=== PATIENT | male | born 2000 | race Caucasian/White ===

== ENCOUNTER 2022-09-25 17:24 | Inpatient (IN) | payer OTHER ==
[~2022-09-25] VITALS: Ht 185.4 cm; Wt 95.3 kg
[2022-09-25 17:32] VITALS: O2SAT 100
[2022-09-25 18:47] LABS: HEMATOCRIT. 49.5 % (42.0-52.0); MEAN CORPUSCULAR HEMOGLOBIN 30.1 pg (28.0-32.0); MEAN CORPUSCULAR VOLUME 87.6 fL (80.0-94.0); MEAN PLATELET VOLUME 8.2 fl (7.4-10.4); PLATELET 214 x1000/uL (130-400); RED BLOOD CELL COUNT 5.64 mill/uL (4.7-6.1); RED CELL DISTRIBUTION WIDTH 12.6 % (11.6-14.6)
[2022-09-25 18:55] LABS: CHLORIDE 100 mEq/L (98-107)
[2022-09-25] MEDS ORDERED: KETOROLAC 15MG/ML VIAL IV ONE (19:30)
[2022-09-25] MEDS ORDERED: SODIUM CHLORIDE 0.9% 1000ML BAG (SEPSIS BOLUS) IV ONE (19:30)
[2022-09-25 19:53] LABS: PLATELET ESTIMATE NORMAL
[2022-09-25] MEDS ORDERED: IOHEXOL-300 100 ML BOTTLE ONE (19:59)
[2022-09-25] MEDS ORDERED: MORPHINE SULFATE 4 MG/ML CPJ (NOT FOR IM USE) IV NR (20:15)
[2022-09-25] MEDS ORDERED: PIPERACILLIN/TAZOBACTAM 3.375GM/50ML PREMIX IV ONE (20:15)
[2022-09-25] MEDS ORDERED: ONDANSETRON HCL 4MG/2ML INJ IV NR (20:15)
[2022-09-25 20:16] LABS: INR 1.2; PROTHROMBIN TIME 12.7 sec (9.6-11.0)
[2022-09-25 20:22] LABS: CREATINE KINASE 239 IU/L (39-308); ETHANOL BLOOD < 10 mg/dL (-10)
[2022-09-25] MEDS ORDERED: KETOROLAC 15MG/ML VIAL IV NR (20:30)
[2022-09-25] MEDS ORDERED: PIPERACILLIN/TAZ 3.375G PREMIX 50 ML IV NR (20:30)
[2022-09-25] MEDS ORDERED: FENTANYL CITRATE/PF 50MCG/ML 2ML VIAL ONE (21:42)
[2022-09-25] MEDS ORDERED: LIDOCAINE HCL 1% 10 MG/ML 10ML VIAL ONE (21:42)
[2022-09-25] MEDS ORDERED: MIDAZOLAM HCL 2 MG/2 ML VIAL ONE (21:42)
[2022-09-25] MEDS ORDERED: PROPOFOL 200MG/20ML VIAL IV ONE (21:42)
[2022-09-25] MEDS ORDERED: ROCURONIUM BROMIDE 10MG/ML VIAL 5ML IV ONE (21:43)
[2022-09-25] MEDS ORDERED: BUPIVACAINE HCL/PF 0.5% (5MG/ML) 10ML ONE (22:19)
[2022-09-25] MEDS ORDERED: SKIN ADHESIVE 0.7 GM EA TOP ONE (22:19)
[2022-09-25] MEDS ORDERED: HYDROMORPHONE HCL/PF 2MG/ML CPJ IV PRN (22:30)
[2022-09-25] MEDS ORDERED: ONDANSETRON HCL 4MG/2ML INJ IV PRN (22:30)
[2022-09-25] MEDS ORDERED: NALOXONE HCL 0.4MG/ML VIAL IV PRN ×2 (22:30→23:45)
[2022-09-25] MEDS ORDERED: SUCCINYLCHOLINE CHLORIDE 200MG/10ML IV ONE (22:35)
[2022-09-25] MEDS ORDERED: KETOROLAC 30MG/ML VIAL ONE (22:35)
[2022-09-25] MEDS ORDERED: ONDANSETRON HCL 4MG/2ML INJ ONE (22:35)
[2022-09-25] MEDS ORDERED: GLYCOPYRROLATE 0.2 MG/ML 2ML VIAL ONE ×2 (22:40)
[2022-09-25] MEDS ORDERED: NEOSTIGMINE METHYLSULFATE 1MG/ML 10 ML VIAL ONE (22:40)
[2022-09-25] MEDS ORDERED: DEXAMETHASONE 4MG/ML 1ML VIAL ONE (22:54)
[2022-09-25] MEDS ORDERED: PHENYLEPHRINE HCL 10 MG/ML 1ML (IV VIAL) IV ONE (22:54)
[2022-09-26] MEDS ORDERED: MORPHINE SULFATE 4 MG/ML CPJ (NOT FOR IM USE) IV PRN
[2022-09-26] MEDS ORDERED: ONDANSETRON HCL 4MG/2ML INJ IV PRN
[2022-09-26 01:27] VITALS: BP 117/55; PULSE 86; RESP 18; TEMP 98.3
[2022-09-26 02:10] VITALS: BP 117/55; PULSE 86; RESP 18; TEMP 98.3
[2022-09-26] MEDS: DEXT 5%/0.45% NACL KCL 20MEQ/L 1,000 ML IV SCH ×2 (03:12→11:00)
[2022-09-26 04:00] VITALS: BP 104/55; PULSE 70; RESP 18; TEMP 96.4
[2022-09-26 08:00] VITALS: BP 98/78; PULSE 77; RESP 17; TEMP 98.6
[2022-09-26 12:00] VITALS: BP 102/66; PULSE 79; RESP 17; TEMP 97.3
== END 2022-09-26 18:45 | disposition home or self-care (01) | DRG 342 ==
LOC: ER 17:24 → MICUSO 21:09 → EDBEDREQ 21:15 → EDBEDREQTM 21:15 → EDBEDREQSVC 21:15 → 6EST 09-26 00:46
PROVIDERS: ADMIT Internal Medicine; ATTEND Internal Medicine
PROC: 0DTJ4ZZ Resection of Appendix, Percutaneous Endoscopic Approach (ICD-10-PCS; principal; 2022-09-25)
DX: K35.80 Unspecified acute appendicitis (principal); E87.1 Hypo-osmolality and hyponatremia; E87.20 Acidosis, unspecified; K38.1 Appendicular concretions; R73.9 Hyperglycemia, unspecified
CPT/HCPCS: 36415; 71045; 74177; 80053; 80320; 82550; 82962; 83605; 84145; 85025; 86850; 86900; 88304; 93005; 99291; J0330; J1100; J1885; J2250; J2370; J2405; J2543; J2704; J2710; J3010; J3490; J7030; Q9967; G0480